=== PATIENT | female | born 1965 | race African-American/Black ===

== ENCOUNTER 2017-06-14 10:06 | Emergency (ER) | payer BC ==
[~2017-06-14] VITALS: Ht 162.6 cm; Wt 79.4 kg
[2017-06-14 10:11] VITALS: BP 133/79
== END 2017-06-14 10:27 | disposition home or self-care (01) ==
LOC: ER 10:09
DX: S70.361A Insect bite (nonvenomous), right thigh, initial encounter (principal); Z88.2 Allergy status to sulfonamides; Z88.8 Allergy status to other drugs, medicaments and biological substances; W57.XXXA Bitten or stung by nonvenomous insect and other nonvenomous arthropods, initial encounter; Y93.89 Activity, other specified; Y92.89 Other specified places as the place of occurrence of the external cause; Y99.9 Unspecified external cause status
CPT/HCPCS: 99281; A4606; Z7610; Z7502

== ENCOUNTER 2017-11-04 13:50 | Emergency (ER) | payer BC ==
[~2017-11-04] VITALS: Ht 167.6 cm; Wt 68.0 kg
[2017-11-04 13:50] VITALS: BP 114/68
[2017-11-04] MEDS ORDERED: HYDROCODONE/APAP 5/325MG 1 EACH TABLET PO ONE (14:30)
[2017-11-04] MEDS ORDERED: IBUPROFEN 600 MG TABLET PO ONE (14:30)
== END 2017-11-04 15:23 | disposition home or self-care (01) ==
LOC: ER 13:51
DX: S39.012A Strain of muscle, fascia and tendon of lower back, initial encounter (principal); S16.1XXA Strain of muscle, fascia and tendon at neck level, initial encounter; Z88.2 Allergy status to sulfonamides; Z88.8 Allergy status to other drugs, medicaments and biological substances; V49.49XA Driver injured in collision with other motor vehicles in traffic accident, initial encounter; Y93.89 Activity, other specified; Y92.410 Unspecified street and highway as the place of occurrence of the external cause; Y99.8 Other external cause status
CPT/HCPCS: 71045-TC; 72040-TC; 72074-TC; 72100-TC; A4606; Z7610

== ENCOUNTER 2018-11-23 20:36 | Emergency (ER) | payer BC ==
[~2018-11-23] VITALS: Ht 162.6 cm; Wt 79.4 kg
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
[2018-11-23 21:03] VITALS: BP 137/77
[2018-11-23] MEDS ORDERED: HYDROCODONE/APAP 5/325MG 1 EACH TABLET ONE (21:29)
[2018-11-23] MEDS ORDERED: HYDROCODONE/APAP 5/325MG 1 EACH TABLET PO ONE (21:30)
--- NOTE | 2018-11-23 21:33 | NUR ---
PT TAKEN TO RADIOLOGY VIA [facility]
[2018-11-24] MEDS ORDERED: HYDROCODONE/APAP 10/325MG 1 EA TABLET PO ONE
[2018-11-24] MEDS ORDERED: HYDROCODONE/APAP 10/325MG 1 EA TABLET ONE (00:05)
--- NOTE | 2018-11-24 00:50 | NUR ---
TECH AT BEDSIDE TO APPLY SLING
--- NOTE | 2018-11-24 00:52 | NUR ---
Patient discharged to home in stable condition. Written and verbal after care instructions given. Patient verbalizes understanding of instruction. PT AMBULATORY WITH STEADY GAIT ACCOMPANIED BY FAMILY.
== END 2018-11-24 00:59 | disposition home or self-care (01) ==
LOC: ER 20:38
DX: S02.2XXA Fracture of nasal bones, initial encounter for closed fracture (principal); S29.012A Strain of muscle and tendon of back wall of thorax, initial encounter; S16.1XXA Strain of muscle, fascia and tendon at neck level, initial encounter; S40.012A Contusion of left shoulder, initial encounter; S09.8XXA Other specified injuries of head, initial encounter; M50.10 Cervical disc disorder with radiculopathy, unspecified cervical region; Z41.1 Encounter for cosmetic surgery; Z88.2 Allergy status to sulfonamides; Z88.1 Allergy status to other antibiotic agents; Z60.2 Problems related to living alone; Y08.89XA Assault by other specified means, initial encounter; Y93.89 Activity, other specified; Y92.89 Other specified places as the place of occurrence of the external cause; Y99.8 Other external cause status
CPT/HCPCS: 70450-TC; 70486-TC; 72074-TC; 72125-TC; 73030-TC; A6402; L0172

== ENCOUNTER 2021-11-15 11:00 | Emergency (ER) | payer BC ==
[~2021-11-15] VITALS: Ht 162.6 cm; Wt 63.5 kg
[2021-11-15 11:05] VITALS: BP 105/55
--- NOTE | 2021-11-15 11:09 | NUR ---
DR SENIOR AT BEDSIDE
--- NOTE | 2021-11-15 11:12 | NUR ---
BIB SELF "I GOT EXPOSE TO RADIATION FROM THE SATELLITE" VITALS ARE WITHIN NORMAL LIMITS. BREATHING IS EVEN AND UNLABORED.
[2021-11-15] MEDS ORDERED: KETOROLAC TROMETHAMINE 15 MG/ML VIAL ONE (11:19)
[2021-11-15] MEDS ORDERED: KETOROLAC TROMETHAMINE INJ 30 MG/ML VIAL IM ONE (11:30)
--- NOTE | 2021-11-15 12:09 | NUR ---
Patient discharged to home in stable condition. Written and verbal after care instructions given. Patient verbalizes understanding of instruction.
== END 2021-11-15 12:09 | disposition home or self-care (01) ==
LOC: ER 11:03
DX: M25.512 Pain in left shoulder (principal); R20.8 Other disturbances of skin sensation; D25.9 Leiomyoma of uterus, unspecified; Z41.1 Encounter for cosmetic surgery; Z88.2 Allergy status to sulfonamides; Z60.2 Problems related to living alone
CPT/HCPCS: 71045; 96372; 99283; J1885